=== PATIENT | female | born 1965 | race American Indian/Alaskan Native ===

== ENCOUNTER 2016-08-13 18:16 | Emergency (ER) | payer SELFPAY ==
[2016-08-13 18:44] LABS: Basophils % (Auto) 0.7 % (0.0-1.8); Eosinophils % (Auto) 1.7 % (0.0-4.3); Hematocrit 37.6 % (30.3-42.9); Hemoglobin 13.2 gm/dl (10.1-14.3); Mean Corpuscular HGB Conc 35 % (30-34); Mean Corpuscular Hemoglobin 28 pg (28-32); Mean Corpuscular Volume 79 fl (79-97); Platelet Count 222 K/mm3 (140-440); Red Blood Count 4.79 M/mm3 (3.65-5.03); Red Cell Distribution Width 13.9 % (13.2-15.2); White Blood Count 7.6 K/mm3 (4.5-11.0)
[2016-08-13 19:00] LABS: Anion Gap 19 mmol/L; BUN/Creatinine Ratio 18.33; Blood Urea Nitrogen 11 mg/dL (7-17); Carbon Dioxide 22 mmol/L (22-30); Glucose 441 mg/dL (65-100); Potassium 4.2 mmol/L (3.6-5.0); Sodium 131 mmol/L (137-145)
[2016-08-13] MEDS ORDERED: NACL 0.9% 1000 ML 1,000 ML IV ONE (19:10)
[2016-08-13 19:24] LABS: Bilirubin,Urine NEG (Negative); Blood,Urine NEG (Negative); Ketones,Urine NEG (Negative); Leukocyte Esterase,Urine NEG (Negative); Mucus,Urine FEW /HPF; Nitrite,Urine NEG (Negative); Protein,Urine <15 mg/dL mg/dL (Negative); Urobilinogen,Urine < 2.0 mg/dL (<2.0); WBC,Urine < 1.0 /HPF (0.0-6.0)
[2016-08-13] MEDS ORDERED: NORCO 5/325 PO ONE (19:50)
--- NOTE | 2016-08-13 21:44 | Emergency Department Report ---
ED General Adult HPI - General Chief complaint: Hyperglycemia Stated complaint: HYPERGLYCEMIA Time Seen by Provider: 08/13/16 19:09 Source: patient, EMS Mode of arrival: Stretcher Limitations: No Limitations - History of Present Illness Initial comments: 50-year-old female with past medical history diabetes presents to the emergency department complaining of generalized weakness and fatigue over the last 2 days. Patient states she's been noncompliant with her diabetes medication secondary to not following up with primary care. Patient states she rarely checks her blood sugar however today she really realized that she has been having increased thirst, and frequent urination and called EMS to check her sugar and it read "hi" therefor she was transported to [facility]. Patient denies: Focal neuro deficits, fevers/chills, headache, neck pain, chest pain, abdominal pain, nausea/vomiting/diarrhea. Severity scale (0 -10): 8 - Related Data Previous Rx's Medication Instructions Recorded Last Taken Type metFORMIN [Glucophage] 500 mg PO BID #40 tablet 08/13/16 Unknown Rx Allergies Allergy/AdvReac Type Severity Reaction Status Date / Time No Known Allergies Allergy Unverified 08/13/16 18:18 ED Review of Systems ROS: Stated complaint: HYPERGLYCEMIA Other details as noted in HPI Constitutional: malaise, weakness Eyes: denies: eye pain, eye discharge, vision change ENT: denies: ear pain, throat pain Respiratory: denies: cough, shortness of breath, wheezing Cardiovascular: denies: chest pain, palpitations Endocrine: no symptoms reported Gastrointestinal: denies: abdominal pain, nausea, diarrhea Genitourinary: denies: urgency, dysuria, discharge Musculoskeletal: denies: back pain, joint swelling, arthralgia Skin: denies: rash, lesions Neurological: denies: headache, weakness, paresthesias Psychiatric: denies: anxiety, depression Hematological/Lymphatic: denies: easy bleeding, easy bruising ED Past Medical Hx - Past Medical History Previous Medical History?: Yes Hx Hypertension: Yes Hx Diabetes: Yes - Surgical History Past Surgical History?: Yes Additional Surgical History: hernia repair - Social History Smoking Status: Never Smoker Substance Use Type: None - Medications Home Medications: Home Medications Medication Instructions Recorded Confirmed Last Taken Type metFORMIN [Glucophage] 500 mg PO BID #40 tablet 08/13/16 Unknown Rx ED Physical Exam - General Limitations: No Limitations General appearance: alert, in no apparent distress - Head Head exam: Present: atraumatic, normocephalic - Eye Eye exam: Present: normal appearance - ENT ENT exam: Present: mucous membranes moist - Neck Neck exam: Present: normal inspection - Respiratory Respiratory exam: Present: normal lung sounds bilaterally. Absent: respiratory distress - Cardiovascular Cardiovascular Exam: Present: regular rate, normal rhythm. Absent: systolic murmur, diastolic murmur, rubs, gallop - GI/Abdominal GI/Abdominal exam: Present: soft, normal bowel sounds - Extremities Exam Extremities exam: Present: normal inspection - Back Exam Back exam: Present: normal inspection - Neurological Exam Neurological exam: Present: alert, oriented X3 - Psychiatric Psychiatric exam: Present: normal affect, normal mood - Skin Skin exam: Present: warm, dry, intact, normal color. Absent: rash ED Course Vital Signs 08/13/16 08/13/16 08/13/16 18:16 18:21 18:22 Temperature 98.1 F Pulse Rate 80 79 80 Respiratory 18 16 20 Rate Blood Pressure 167/73 Blood Pressure 167/91 [Left] O2 Sat by Pulse 99 100 Oximetry 08/13/16 08/13/16 08/13/16 18:31 18:41 18:51 Temperature Pulse Rate 84 84 74 Respiratory 16 17 14 Rate Blood Pressure 121/91 121/91 131/78 Blood Pressure [Left] O2 Sat by Pulse 99 99 100 Oximetry 08/13/16 08/13/16 08/13/16 19:00 19:11 19:21 Temperature Pulse Rate 77 77 73 Respiratory 20 14 14 Rate Blood Pressure 116/61 116/61 120/60 Blood Pressure [Left] O2 Sat by Pulse 99 98 100 Oximetry 08/13/16 08/13/16 08/13/16 19:30 19:41 19:47 Temperature Pulse Rate 83 Respiratory 13 18 18 Rate Blood Pressure 143/75 143/75 Blood Pressure [Left] O2 Sat by Pulse 100 99 100 Oximetry 08/13/16 08/13/16 08/13/16 19:51 19:55 20:00 Temperature Pulse Rate Respiratory 15 18 17 Rate Blood Pressure 143/85 135/81 Blood Pressure [Left] O2 Sat by Pulse 100 99 Oximetry 08/13/16 08/13/16 08/13/16 20:11 20:21 20:30 Temperature Pulse Rate 82 81 Respiratory 15 14 14 Rate Blood Pressure 135/81 142/87 131/84 Blood Pressure [Left] O2 Sat by Pulse 98 100 98 Oximetry 08/13/16 08/13/16 08/13/16 20:41 20:51 21:00 Temperature Pulse Rate 80 77 73 Respiratory 16 13 12 Rate Blood Pressure 131/84 140/87 140/80 Blood Pressure [Left] O2 Sat by Pulse 99 99 93 Oximetry 08/13/16 08/13/16 08/13/16 21:11 21:21 21:30 Temperature Pulse Rate 79 78 73 Respiratory 15 16 13 Rate Blood Pressure 140/80 133/86 123/77 Blood Pressure [Left] O2 Sat by Pulse 98 99 96 Oximetry 08/13/16 08/13/16 08/13/16 21:41 21:51 22:01 Temperature Pulse Rate 72 76 74 Respiratory 14 14 14 Rate Blood Pressure 123/77 134/80 134/80 Blood Pressure [Left] O2 Sat by Pulse 100 98 98 Oximetry 08/13/16 22:11 Temperature Pulse Rate 75 Respiratory 15 Rate Blood Pressure 134/80 Blood Pressure [Left] O2 Sat by Pulse 97 Oximetry - Reevaluation(s) Reevaluation #1: 08/13/16 21:42 Patient resting comfortably ED Medical Decision Making - Lab Data Result diagrams: 08/13/16 18:29 08/13/16 18:29 - EKG Data -: EKG Interpreted by Me EKG shows normal: sinus rhythm Rate: normal - EKG Data When compared to previous EKG there are: no significant change Interpretation: no acute changes, normal EKG - Medical Decision Making The 50-year-old female with past medical history of diabetes presenting to emergency for complaining of generalized weakness. Symptoms likely secondary to hyperglycemia. Hyperglycemia is likely secondary to medication noncompliance. Patient states she does not know which diabetes medication she is supposed to be on. No evidence of DKA on exam today. No evidence of acute findings today. I will start patient on metformin and have her follow up with primary care, pt states if she is given information to a PCP office she will follow up. Patient states she's stable and ready to discharge home. She verbalized understanding of return precautions. Critical Care Time: No Critical care attestation.: If time is entered above; I have spent that time in minutes in the direct care of this critically ill patient, excluding procedure time. ED Disposition Clinical Impression: Hyperglycemia Disposition: DC-01 TO HOME OR SELFCARE Is pt being admited?: No Does the pt Need Aspirin: No Condition: Stable Instructions: Diabetes Mellitus Type 2 in Adults (ED), Meal Planning with Diabetes Exchanges (DC), Hyperglycemia, Non-Diabetic (ED) Prescriptions: metFORMIN [Glucophage] 500 mg PO BID #40 tablet Referrals: PRIMARY CARE, [Primary Care Provider] - 3-5 Days REJI DOE MD [Staff Physician] - [facility] Forms: Work/School Release Form(ED)
[2016-08-13 22:55] VITALS: BP 134/80
== END 2016-08-13 22:38 | disposition home or self-care (01) ==
LOC: ED 18:16
DX: E11.65 Type 2 diabetes mellitus with hyperglycemia (principal); I10 Essential (primary) hypertension
CPT/HCPCS: 36415; 80048; 81001; 82805; 82962; 84703; 85025; 93005; 93010; 96361; 96374; 99284; J7030; J1815